=== PATIENT | female | born 1960 | race Caucasian/White ===

== ENCOUNTER 2017-01-19 15:09 | Observation (INO) | payer MEDICARE ==
[~2017-01-19] VITALS: Ht 165.1 cm; Wt 85.4 kg
--- NOTE | ~2017-01-19 | CO ---
Unit #: [id number] #: [id number] Patient: KERRIE WALTERS [id number] [facility]. [place], [place] [address] [id number] I MR#: [id number] NAME: KERRIE WALTERS ROOM: 560 Age: 56 Sex: F Admission Date: 01/19/2017 : 1960 Attending Physician: Scar Cervantes M.D. Primary Care Physician: Primary Care Physician No CONSULTATION REPORT REASON FOR CONSULTATION High sugars. HISTORY OF PRESENT ILLNESS The patient is a 56-year-old female with history of 2 TIAs, who presented to the emergency room with complaint of the chest pain. The patient is undergoing the cardiac workup for the chest pain. She was found to have a high hemoglobin A1c of 10.5. The sugars have been running in the 200s and the Medicine consult has been placed. The patient denied any history of diabetes and has new-onset diabetes mellitus. The patient has a primary history of diabetes in the past. The patient denies any complications of diabetes with neuropathy or adenopathy. PAST MEDICAL HISTORY History of TIAs x2 and history of alcoholism, quit drinking 26 years ago. PAST SURGICAL HISTORY History of cholecystectomy and . HOME MEDICATIONS Aspirin, multivitamins, and iron. ALLERGIES Valium, codeine, and erythromycin. SOCIAL HISTORY No history of smoking and quit drinking 26 years ago. Denies any illicit drug abuse. FAMILY HISTORY Father had a diabetes. REVIEW OF SYSTEMS Complains of the chest pain. Complains of the neck pain. Complains of the shoulder pain and all other systems have been reviewed and none. PHYSICAL EXAMINATION VITAL SIGNS: Temperature is 98.3, pulse 67, respirations 16, and blood pressure is 132/68. HEENT: Head, atraumatic and normocephalic. Pupils are equal and reactive to light and accommodation. Extraocular movements are intact. Dry mucous membranes. NECK: Supple. Unit #: [id number] #: [id number] Patient: KERRIE WALTERS LUNGS: Decreased air entry at the bases. HEART: Regular rate and rhythm. ABDOMEN: Soft. Positive bowel sounds. EXTREMITIES: No cyanosis. No clubbing. NEURO: Alert, awake, and oriented. No gross focal motor deficits. DIAGNOSTIC STUDIES LABORATORY RESULTS: Hemoglobin A1c is 10.5. Troponin less than 0.03. Sodium 132, potassium 4.3, glucose 216, BUN 12, creatinine 0.5. Cholesterol 229, triglyceride 182, LDL 153. TSH is 1.4. IMAGING STUDIES: Chest x-ray shows normal portable chest. ASSESSMENT 1. New-onset diabetes mellitus. 2. Chest pain, rule out ischemia. PLAN To continue with cardiac workup to rule out ischemia. The patient will be started on low dose sliding scale and will be started on the metformin. The patient will be titrated up to include the insulin with high hemoglobin A1c. Further recommendations will follow as more lab results are available. Dictated by... Reid Zazueta/bhargav TD: 01/21/2017 01:36 JOB #: [id number] CONSULTATION REPORT Page 1 of 1 X TALIB MARY MD X CONSULTATION REPORT
--- NOTE | ~2017-01-19 | TH ---
Unit #: [id number] #: [id number] Patient: KERRIE WALTERS [id number] [address] [address] [id number] I MR#: [id number] NAME: KERRIE WALTERS : 1960 SEX: F STUDY DATE/TIME: 01/20/2017 UNIT: [id number] ROOM: [facility] STUDY DESCRIPTION: Attending Physician: Scar Cervantes M.D. CARDIOLOGY REPORT EXAM Stress nuclear and ECG combined. INDICATION Chest pain, dyspnea, abnormal resting ECG. SUMMARY Patient exercised on a Eris protocol to maximal effort. Resting ECG was abnormal with flattened T waves in lead V2. With stress, there was sinus arrhythmia but no diagnostic ST shifts. Patient completed 6 minutes 30 seconds of exercise. Heart rate increased from 64 to 141 (86%) and blood pressure increased from 147/72 to 210/90. Technetium 99 Cardiolite 8.54 and 27.8 mCi was given at rest and stress, respectively. Appropriate views were obtained. FINDINGS Perfusion images demonstrate intestinal artifact more at rest than at stress. There is diaphragmatic artifact at both rest and stress, primarily in the inferior apex. There is no significant change between rest and stress. Planar images demonstrate no significant patient motion either at rest or stress. There is no significant lung uptake, LV or RV enlargement. Summed stress score is zero. Gated perfusion wall motion analysis demonstrates normal wall motion throughout the myocardium with end-diastolic volume 67 mL and ejection fraction 70%. IMPRESSION 1. Myocardial perfusion study demonstrates no ischemia or infarction. 2. Normal wall motion with excellent ejection fraction. 3. No change in therapy based on this study. 1. Dictated by... Reid Hernandez/megan TD: 01/20/2017 17:21 JOB #: [id number] Unit #: [id number] #: [id number] Patient: KERRIE WALTERS CARDIOLOGY REPORT Page 1 of 1 X Scar Cervantes MD CARDIOLOGY REPORT
--- NOTE | ~2017-01-19 | A ---
[facility] Nutrition Therapy DATE: 01/21/17 Patient: KERRIE WALTERS Physician: CHIP Address: [address] [facility] Room/Bed: [address] [place] [address], Zip: [place] [address] Admit Date: 01/19/17 Date of : 58 Height: 5 5 Weight: 188 85.4 NUTRITIONAL ASSESSMENT: REASON: CONSULT RE: DM DIET EDUCATION PT IS 56 Y.O. FEMALE ADMITTED FOR CHEST PAIN HT: 5'5", WT: 185# (84 KG), BMI: 30.8 RD PROVIDED WRITTEN AND VERBAL CC DIET EDUCATION. RD ENCOURAGED IMPORTANCE OF CONSUMING 3 MEALS DAILY + IMPORTANCE OF PORTION CONTROL AND READING FOOD LABELS. PT REPORTS CONSUMING BREAD AND POTATOES OFTEN AND NOTES ONLY CONSUMING 1-[address] ENCOURAGED PT TO ADD ONE MORE MEAL TO HER DAY WELL CUT BACK ON BREAD AND POTATOES (INCLUDE MORE FRUITS AND VEGETABLES). PT DEMONSTRATED UNDERSTANDING OF THE TOPIC. RD ANSWERED PT'S QUESTIONS APPROPRIATELY. RD TO REMAIN AVAILABLE UPON REQUEST. RECOMMENDATIONS: 1. ENCOURAGE COMPLIACE OF CURRENT DIET ORDER-CC+HH 2. RE-CONSULT RD IF FURTHER DIET EDUCATION NEEDED/REQUESTED RD WILL F/U PER PROTOCOL Respectfully, ZHANE GAMING MS, RD, LD Food and Nutritional Services [facility] cc: client file
--- NOTE | ~2017-01-19 | DS ---
Unit #: [id number] #: [id number] Patient: KERRIE WHEATLEY [id number] [address] [place], [place] [address] [id number] I MR#: [id number] NAME: KERRIE WHEATLEY ROOM: 560 Age: 56 Sex: F Admission Date: 01/19/2017 : 1960 Discharge Date: 01/21/2017 Attending Physician: Scar Cervantes M.D. Primary Care Physician: No Primary Care Physician DISCHARGE SUMMARY ADMITTING DIAGNOSIS Chest pain. DISCHARGE DIAGNOSES 1. Chest pain, resolved. 2. Diabetes mellitus type 2. HOSPITAL COURSE The patient is a 56-year-old female with a history of two TIA, who presented to the emergency department with complaints of chest pain. Myocardial infarction was ruled out with negative troponin. She then proceeded with a stress Cardiolite, which showed diaphragmatic artifact but no stress induced ischemia. She also had a 2D echo Doppler on 01/20/2017, which showed an ejection fraction of 55% to 60% and grade 1 diastolic dysfunction. She was noted to have elevated blood sugar levels in the 200 range and hemoglobin A1c of 10.5. Internal medicine was consulted. They have started the patient on metformin 1,000 mg twice daily; glipizide 10 mg daily. PHYSICAL EXAMINATION VITAL SIGNS: Blood pressure 137/71, heart rate 68 and regular, respirations 18, temperature 98.1, O2 sat 99% on room air. GENERAL: The patient is a well nourished, obese white female in no acute distress. Alert and oriented x3. SKIN: No rashes or hives. HEENT: Head is normocephalic and atraumatic. There are no xanthelasma. Oral mucosa is pink and moist. NECK: No JVD. CARDIAC: Regular rate and rhythm without murmur, gallop, rub or lift. PULMONARY: Clear to auscultation bilaterally without wheezes, rhonchi or accessory muscle use. ABDOMEN: Soft, nontender, nondistended. Positive bowel sounds x4. The abdominal aorta is not enlarged. EXTREMITIES: No clubbing, cyanosis or edema. DISCHARGE MEDICATIONS 1. Ferrous sulfate 325 mg daily. 2. Multivitamin daily. 3. Aspirin 81 mg daily. 4. Metformin 1,000 mg twice daily. 5. Glipizide 10 mg daily. Ms. Wheatley will be discharged home. She will followup with her primary care physician in one to two weeks for further management or her diabetes Unit #: [id number] #: [id number] Patient: KERRIE WHEATLEY mellitus. She was advised to follow a low sugar consistent carb diet and she can return to her regular activity as tolerated. Dictated by... Val Baldwin P.A.C. for Scar Cervantes M.D. DESMOND/ilana TD: 01/22/2017 11:38 JOB #: [id number] DISCHARGE SUMMARY Page 1 of 1 X X DISCHARGE SUMMARY
--- NOTE | ~2017-01-19 | HP ---
Unit #: [id number] #: [id number] Patient: KERRIE WHEATLEY [id number] [facility]. [place], [place] [address] [id number] I MR#: [id number] NAME: KERRIE WHEATLEY ROOM: 560 Age: 56 Sex: F Admission Date: 01/19/2017 : 1960 Attending Physician: Scar Cervantes M.D. Primary Care Physician: No Primary Care Physician HISTORY AND PHYSICAL FAMILY PHYSICIAN [facility] HISTORY OF PRESENT ILLNESS The patient is a 56-year-old female with a history of two TIAs who presented to the emergency department with complaints of chest pain. She states yesterday morning she got up and did her morning walk, which she does routinely before it gets hot. She had no difficulty with this. She then later started cleaning her home and felt tire and laid on her bed and ended up falling asleep for at least 20 minutes. Then when she woke, she had an electricity sensation from her ear to her throat, to her chest and then back up. When she got up out of bed the discomfort was worse and also had a pressure sensation. The pain radiated across her chest to her left neck and left shoulder. She also had associated left arm numbness. She went outside and had a neighbor call 911. She also felt she was seeing double, had smoky vision and felt near syncopal. She had associated shortness of air, nausea and sweating. She is unable to state how long the episode lasted. When EMS arrived they gave her one nitroglycerin and this helped to alleviate the discomfort. She states that she normally does not have problems with chest discomfort with exertion such as walking but she has had had an intermittent chest ache over the past six months. PAST MEDICAL HISTORY TIA x2, history of alcoholism, quit drinking 26 years ago. PAST SURGICAL HISTORY She has had a cholecystectomy and x2. HOME MEDICATIONS Aspirin 81 mg daily, multivitamin and iron 325 mg daily. ALLERGIES Valium, codeine and erythromycin. SOCIAL HISTORY She has never smoked. She does not drink alcohol, quit drinking 26 years ago. She denies any recent illicit drug use. She lives at home with her . FAMILY HISTORY Her father had reportedly 12 ID, was diabetic and at 58 due to cancer. Mother had CAD and CABG. Unit #: [id number] #: [id number] Patient: KERRIE WHEATLEY REVIEW OF SYSTEMS GENERAL: She denies recent fevers, chills, or flu-like symptoms. SKIN: Denies recent rashes or hives. HEENT: She has frequent headaches. She denies recent vision loss but does have hearing loss. She denies epistaxis but she did have some dysphagia recently. She denies swollen glands in her neck. PULMONARY: She has occasional cough, wheezing and shortness of breath. Denies hemoptysis. CARDIAC: Chest pain as discussed above. Alco occasionally has palpitations and tachycardia. GI: She had associated nausea but no vomiting, diarrhea, or melena. : Denies hematuria or dysuria. EXTREMITIES: Denies swelling. SPINE: She has occasional low back pain. NEUROLOGIC: She also noticed dizziness over the past month. Denies syncope. PHYSICAL EXAMINATION VITAL SIGNS: Blood pressure is 128/55, heart rate 64 and regular, respirations 18, temperature 98.1, O2 sat 94% on room air. GENERAL: The patient is well developed, well nourished, obese, white female in no acute distress. Alert and oriented x3. SKIN: No rashes or hives. HEENT: Head is normocephalic and atraumatic. There are no xanthelasma. Oral mucosa is pink and moist. There is poor dentition. NECK: No carotid bruits or JVD. SPINE: No scoliosis. CHEST: Clear to auscultation bilaterally without wheezes, rhonchi, or rales, or accessory muscle use. CORONARY: Regular rate and rhythm without murmur, gallop, rub or lift. ABDOMEN: Soft, nontender, nondistended. Positive bowel sounds x4. The abdominal pulsation is not enlarged. EXTREMITIES: No cyanosis, clubbing or edema. NEUROLOGIC: Awake, alert and oriented x3. DIAGNOSTIC STUDIES LABORATORY STUDIES: Hemoglobin A1c 10.5. Troponin less than 0.03 at 5:10 this morning and less than 0.03 at 23.35 yesterday and less than 0.05 at 17:38. Sodium 132, potassium 4.3, chloride 101, CO2 20, BUN 12, creatinine 0.5, and glucose 216. White blood cell 5.7, hemoglobin 13.3, hematocrit 39.3, platelets 287. Cholesterol 229, triglycerides 182, LDL 153, HDL 40, TSH 1.4. IMAGING STUDIES: Chest x-ray was normal. CARDIOLOGY STUDIES: EKG showed normal sinus rhythm. ASSESSMENT AND PLAN 1. Chest pain. 2. Elevated blood glucose level and elevated hemoglobin A1c. 3. History of TIA x2. 4. Hyperlipidemia with LDL of 153. Ms. Wheatley has been set up for an echo. We will also check a stress Cardiolite. Her serial troponins are negative. Further recommendations will be based on the results of these tests. We will also consult Internal medicine for the elevated blood glucose. Unit #: [id number] #: [id number] Patient: KERRIE WHEATLEY Dictated by Val Baldwin PScottA.C. for Scar Cervantes M.D. DESMOND/ilana TD: 01/20/2017 10:27 JOB #: [id number] HISTORY AND PHYSICAL Page 1 of 1 X X HISTORY AND PHYSICAL
--- NOTE | ~2017-01-19 | CR72 ---
[facility] A Service of [facility] & [facility] RADIOLOGY TEXT RESULTS PATIENT: KERRIE WALTERS LOCATION: [facility] 560-01 : [birth year] UNIT #: [id number] AGE: [address]: Scar Cervantes MD SEX: F ORDER DR: [id number] [facility] [address] [place], [place] [address] [id number] MR#: [id number] Acc #: [id number] NAME: KERRIE WALTERS : 1960 SEX: F STUDY DATE/TIME: 01/19/2017 16:21 UNIT: [facility] ROOM: [facility] STUDY DESCRIPTION: CR Chest Single View Portable Attending Physician: Scar Cervantes M.D. Ordering Physician: Ed Doctor [id number] [facility] Primary Care Physician: No Primary Care Physician MEDICAL IMAGING REPORT This report is preliminary unless electronic signature is present EXAM AP portable chest Date: 01/19/2017 HISTORY Chest pain, shortness of breath since 01/19/2017. COMPARISON PA and lateral chest radiograph 06/11/2016. FINDINGS A single AP portable view of the chest shows both lungs to be clear. The heart is normal in size. The mediastinal contour is normal. No significant bone abnormalities are seen. IMPRESSION Normal portable chest. Dictated by... Radha Leyva M.D. THIS IS AN ELECTRONICALLY VERIFIED REPORT Radha Leyva M.D. at 01/21/2017 8:51 AM SHRAVAN/arnold TD: 01/20/2017 04:15 JOB #: [id number] MEDICAL IMAGING REPORT Page 1 of 1 COPY
--- NOTE | ~2017-01-19 | EKG ---
PATIENT: KERRIE WALTERS UNIT #: [id number] Ventricular Rate: 70 BPM Atrial Rate: 70 BPM P-R Interval: 164 ms QRS Duration: 80 ms Q-T Interval: 404 ms QTC Calculation(Bezet): 436 ms P [place]: 45 degrees Calculated R [place]: 9 degrees Calculated T [place]: 41 degrees Diagnosis Line: Normal sinus rhythm Diagnosis Line: Normal ECG Diagnosis Line: No previous ECGs available Diagnosis Line: Confirmed by THOMAS STEARNS MD ([id number]) on 01/20/2017 Diagnosis Line: 7:16:49 AM INTERPRETING MD: DARYN BERNAL
[2017-01-19 16:26] LABS: BASOPHIL# 0.1 X10e3 (0-0.3); EOSINOPHIL# 0.2 X10e3 (0-0.7); EOSINOPHIL% 3.4 % (0.0-7.0); HEMATOCRIT 39.3 % (35.0-45.0); HEMOGLOBIN 13.3 gm/dL (12.0-16.0); LYMPHOCYTE# 1.6 X10e3 (1.0-3.5); MEAN CELL VOLUME 85.8 FL (83-96); MEAN CORPUSCULAR HEMOGLOBIN 29.1 PG (28-34); MEAN CORPUSCULAR HGB CONC 33.9 g/dL (30-36); MEAN PLATELET VOLUME 8.3 FL (6.5-11.5); MONOCYTE# 0.5 X10e3 (0-1.0); MONOCYTE% 8.5 % (3.0-12.0); NEUTROPHIL# 3.4 X10e3 (1.5-7.1); NEUTROPHIL% 59.1 % (40-75); PLATELET COUNT 287 X10e3 (140-420); RED BLOOD COUNT 4.58 X10e (3.90-5.30); RED CELL DISTRIBUTION WIDTH 13.5 % (11.0-15.5); WHITE BLOOD COUNT 5.7 X10e3 (4.0-10.5)
[2017-01-19 16:34] LABS: DIFF IND NO
[2017-01-19 16:42] LABS: POC - CKMB <1.0 ng/mL (0.0-7.9); POC - TROPONIN <0.05 ng/mL (<=0.05)
[2017-01-19 16:42] LABS: INR 0.9; PARTIAL THROMBOPLASTIN TIME 25.4 SECONDS (23.5-31.3); PROTHROMBIN TIME (PATIENT) 10.1 SECONDS (10.0-11.7)
[2017-01-19 16:53] LABS: ALBUMIN SERUM 4.1 g/dL (3.5-5.0); ALKALINE PHOSPHATASE 106 U/L (32-92); ALT (SGPT) 22 U/L (10-40); AST (SGOT) 23 U/L (10-42); BILIRUBIN,TOTAL 0.6 mg/dL (0.2-2.0); BLOOD UREA NITROGEN 8 mg/dL (9-23); BUN/CREATININE RATIO 11.42; CALCIUM SERUM 9.1 mg/dL (8.4-10.2); CARBON DIOXIDE 27 mmol/L (22-31); CHLORIDE 98 mmol/L (100-111); CREATININE SERUM 0.7 mg/dL (0.6-1.4); GLOM FILT RATE Estimated 96.2 mL/min (>60); GLUCOSE FASTING 269 mg/dL (70-110); POTASSIUM 4.2 mmol/L (3.5-5.1); PROTEIN TOTAL SERUM 7.2 g/dL (6.0-8.3); SODIUM 134 mmol/L (135-145)
[2017-01-19 16:54] LABS: BILIRUBIN, DIRECT <0.1 mg/dL (0.0-0.2); BILIRUBIN,INDIRECT 0.5 mg/dL (0.0-0.9)
[2017-01-19 17:40] LABS: POC - CKMB <1.0 ng/mL (0.0-7.9); POC - TROPONIN <0.05 ng/mL (<=0.05)
[2017-01-19] MEDS ORDERED: ASPIRIN81 M2 PO (23:37)
[2017-01-19] MEDS ORDERED: IRON325 MG PO (23:38)
[2017-01-19] MEDS ORDERED: MULTI VITAMIN1 EACH PO (23:38)
[2017-01-20 01:18] LABS: CALCIUM SERUM 8.7 mg/dL (8.4-10.2); CREATININE SERUM 0.5 mg/dL (0.6-1.4); GLOM FILT RATE Estimated 107.4 mL/min (>60); POTASSIUM 4.3 mmol/L (3.5-5.1)
[2017-01-21] MEDS ORDERED: METFORMIN PO (11:50)
[2017-01-21] MEDS ORDERED: GLIPIZIDE10 MG PO (11:51)
== END 2017-01-21 17:58 | disposition home or self-care (01) ==
LOC: CED 15:09 → CEDOF 18:27 → CED 18:39 → C5B 23:16 → CEDOF 23:16 → C5B 01-21 17:58
PROVIDERS: Emergency Medicine
DX: R07.9 Chest pain, unspecified (principal); E11.9 Type 2 diabetes mellitus without complications; E78.5 Hyperlipidemia, unspecified; Z86.73 Personal history of transient ischemic attack (TIA), and cerebral infarction without residual deficits; Z88.1 Allergy status to other antibiotic agents; Z88.5 Allergy status to narcotic agent; Z88.8 Allergy status to other drugs, medicaments and biological substances; Z79.82 Long term (current) use of aspirin; Z79.899 Other long term (current) drug therapy; Z90.49 Acquired absence of other specified parts of digestive tract
CPT/HCPCS: 36415; 71010; 78452; 80048; 80061; 80076; 82553; 82947; 83036; 84443; 84484; 85025; 85610; 85730; 93005; 93017; 93306; 99285; A9500; G0378; J1815